=== PATIENT | male | born 1990 | race Caucasian/White ===

== ENCOUNTER 2020-09-18 06:10 | Emergency (ER) | payer MEDICAID ==
[~2020-09-18] VITALS: Ht 190.5 cm; Wt 135.7 kg
[2020-09-18 06:14] VITALS: BP 168/95
--- NOTE | 2020-09-18 06:22 | NUR ---
pt to room 16, needs prescriptions and assesed by the MD.
[2020-09-18] MEDS ORDERED: LISI5TAB7 PO (06:24)
== END 2020-09-18 06:52 | disposition home or self-care (01) ==
LOC: ED 06:41
DX: I10 Essential (primary) hypertension (principal); Z76.0 Encounter for issue of repeat prescription
CPT/HCPCS: 99281

== ENCOUNTER 2020-11-25 23:21 | Emergency (ER) | payer MEDICAID ==
[~2020-11-25] VITALS: Ht 190.5 cm; Wt 130.0 kg
[~2020-11-25 23:21] MED LIST: LISI5TAB7 PO
[2020-11-25 23:40] VITALS: BP 165/91
== END 2020-11-26 00:56 | disposition home or self-care (01) ==
LOC: ED 23:48
DX: S93.601A Unspecified sprain of right foot, initial encounter (principal); X50.0XXA Overexertion from strenuous movement or load, initial encounter; Y93.89 Activity, other specified; Y92.009 Unspecified place in unspecified non-institutional (private) residence as the place of occurrence of the external cause; Y99.8 Other external cause status
CPT/HCPCS: 99283

== ENCOUNTER 2021-01-01 06:29 | Emergency (ER) | payer MEDICAID ==
[~2021-01-01] VITALS: Ht 190.5 cm; Wt 141.1 kg
[2021-01-01 06:32] VITALS: BP 178/113
--- NOTE | 2021-01-01 06:51 | NUR ---
REPORT FROM STEPHANIE MILLER FOR TRANSFER OF PATIENT CARE.
--- NOTE | 2021-01-01 07:04 | NUR ---
Patient given discharge instructions and prescription and they have confirmed that they understand the instructions. Patient ambulatory with steady gait from ED to private vehicle.
== END 2021-01-01 07:05 | disposition home or self-care (01) ==
LOC: ED 06:52
DX: R03.0 Elevated blood-pressure reading, without diagnosis of hypertension (principal); Z76.0 Encounter for issue of repeat prescription; R00.0 Tachycardia, unspecified
CPT/HCPCS: 99281

== ENCOUNTER 2021-02-01 09:54 | Emergency (ER) | payer MEDICAID ==
[~2021-02-01] VITALS: Ht 190.5 cm; Wt 139.9 kg
[2021-02-01 10:10] VITALS: BP 140/100
== END 2021-02-01 11:46 | disposition home or self-care (01) ==
LOC: ED 10:18
DX: I10 Essential (primary) hypertension (principal); Z76.0 Encounter for issue of repeat prescription
CPT/HCPCS: 99281

== ENCOUNTER 2021-02-22 08:03 | Emergency (ER) | payer MEDICAID ==
[~2021-02-22] VITALS: Ht 188 cm; Wt 138.2 kg
[2021-02-22 08:08] VITALS: BP 132/95
--- NOTE | 2021-02-22 08:26 | NUR ---
pt in bed resting ao4 nadn erp to the bs swelling and abrasion to the L ankle pt reports stepped in a hole last Thur
== END 2021-02-22 10:04 | disposition home or self-care (01) ==
LOC: ED 09:23
DX: S93.492A Sprain of other ligament of left ankle, initial encounter (principal); M79.89 Other specified soft tissue disorders; I10 Essential (primary) hypertension; X58.XXXA Exposure to other specified factors, initial encounter; Y93.89 Activity, other specified; Y92.89 Other specified places as the place of occurrence of the external cause; Y99.8 Other external cause status
CPT/HCPCS: 99284